=== PATIENT | male | born 1990 | race African-American/Black ===

== ENCOUNTER 2024-02-19 11:00 | Emergency (ER) | payer MEDICAID ==
[~2024-02-19] VITALS: Ht 188 cm; Wt 117.0 kg
[2024-02-19 11:06] VITALS: BP 115/73; PULSE 72; RESP 16; TEMP 98.9; O2SAT 100
[2024-02-19] MEDS ORDERED: ACETAMINOPHEN 325MG TABLET PO ONE (12:15)
== END 2024-02-19 15:46 | disposition left against medical advice (07) ==
LOC: ER 11:00
DX: M54.2 Cervicalgia (principal); Z53.21 Procedure and treatment not carried out due to patient leaving prior to being seen by health care provider